=== PATIENT | female | born 1990 | race American Indian/Alaskan Native ===

== ENCOUNTER 2017-04-05 19:07 | Emergency (ER) | payer MEDICAID ==
[2017-04-05 21:40] VITALS: BP 130/81
== END 2017-04-06 01:36 | disposition left against medical advice (07) ==
LOC: ED 19:07
DX: K08.89 Other specified disorders of teeth and supporting structures (principal); M79.602 Pain in left arm; Z53.21 Procedure and treatment not carried out due to patient leaving prior to being seen by health care provider